=== PATIENT | male | born 1990 | race Caucasian/White ===

== ENCOUNTER → 2017-07-20 | Day surgery (SDC) | payer BC ==
[~2017-07-20] VITALS: Ht 165.1 cm; Wt 69.7 kg
[~2017-07-20] MED LIST: *morphine SULFATE 4 MG/ML PERIprocedure ONLY ONE; BACITRACIN TOP OINT 15 GM TUBE ONE; CHLORHEXIDINE GLUCONATE 2 % 1 PACK (2 CLOTHS) TOPICAL PRN; DO NOT ADM ANY ANTICOAGULANT DRUGS PRN; LACTATED RINGER'S 1000 ML INJ 1,000 ML IV ONE; LACTATED RINGER'S 1000 ML IV PRN; LIDOCAINE HCL 1% PF 5 ML SYRINGE OTHER ONE; METOPROLOL TARTRATE 25 MG TAB PO PRN; MIDAZOLAM HCL 2 MG/2 ML VIAL ONE; ONDANSETRON HCL 4 MG/2 ML VIAL IV ONE; POVIDONE IODINE 5% (ANTISEPSIS KIT) 4 APPLICATIONS EACH NARE PRN; PROPOFOL 200 MG/20 ML AMP IV ONE; SODIUM CHLORID 0.9% 500 ML IV PRN; ceFAZolin 1,000 MG/NS 100 ML IV SCH; oxyCODONE/ACETAMINOPHEN 5 MG/325 MG TAB ONE; oxyCODONE/ACETAMINOPHEN 5 MG/325 MG TAB PO PRN
[2017-07-20 14:45] VITALS: BP 120/60; PULSE 67; RESP 18; TEMP 97.8; O2SAT 95
--- NOTE | 2017-07-25 19:42 | PD.OP ---
Operative Report Date of Surgery: Jul 20, 2017 Preoperative Diagnosis: (1) Laceration of extensor muscle and tendon of thumb at wrist and hand level Postoperative Diagnosis: (1) Laceration of extensor muscle and tendon of thumb at wrist and hand level Procedure: Primary repair of extensor pollicis longus tendon (63825) Surgeon: Buck Piedra [employer] Technical Officer(s): . Operation and Findings: 27-year-old male who had a delayed presentation to clinic and was found to have a left extensor pollicis longus tendon laceration. Risks benefits and alternative treatments were discussed. The patient elected to assume the risks of exploration with primary repair versus EIP tendon transfer. Informed consent was obtained. Surgical site was marked in the preoperative holding bay. Antibiotics were given on-call to the operating room. The patient was taken to the operating room and all pressure points were padded. A surgical timeout was performed. An appropriately padded upper extremity tourniquet was placed. After the smooth induction of general anesthesia, the surgical site was instilled with quarter percent Marcaine with epinephrine. The surgical site was prepped and draped in the usual sterile fashion. The upper extremity was exsanguinated using an Esmarch bandage and the tourniquet was inflated to 250 mmHg. An longitudinally oriented incision was made just ulnar to Christiano's tubercle. Blunt dissection was carried down to the extensor retinaculum which was sharply incised over Christiano's tubercle. The third dorsal compartment was sharply released. The extensor pollicis longus was located within the proximal extensor compartment. The patient's transverse laceration over the base of the thumb was re-created and proximal and distal Eyal incisions were made for better visualization as the laceration itself was less than 1 cm. Blunt dissection was carried down to the fascia. Multiple cutaneous nerves were identified and kept free from injury. There were no lacerated cutaneous nerves that were appreciated. The distal end of the extensor pollicis longus tendon was located and dissected free from the pseudo-tendon and scar. With wrist extension and thumb retropulsion the 2 ends were brought into apposition and fixed with 25-gauge hypodermic needles. The tendon was repaired with multiple interrupted 3-0 nylon sutures in a horizontal mattress fashion, side to side with over 1 cm of overlap. The skin was reapproximated with interrupted 4-0 nylon in a horizontal mattress fashion. The surgical site was cleaned. The incision was dressed with bacitracin Xeroform gauze dry gauze fluffs followed by an appropriately padded thumb spica splint. The tourniquet was released at 85 minutes. All digits pinked up nicely. The patient was awoken from anesthesia and arrived stable and doing well to the PACU. Buck Piedra MD Jul 25, 2017 19:42
== END | disposition home or self-care (01) ==
LOC: HSDC 08:54
PROVIDERS: ATTEND Student in an Organized Health Care Education/Training Program
DX: S66.222A Laceration of extensor muscle, fascia and tendon of left thumb at wrist and hand level, initial encounter (principal)
CPT/HCPCS: 01810; 26410; J0690; J2250; J2270; J2405; J3010; J7120